=== PATIENT | female | born 1950 | race Caucasian/White ===

== ENCOUNTER 2016-10-03 07:45 | Day surgery (SDC) | payer BC ==
[~2016-10-03 07:45] MED LIST: Lactated Ringers 1,000 ML IV SCH
[2016-10-03] MEDS ORDERED: Simethicone Drops 40 MG/0.6 ML 30 ML Bottle ONE ×2 (09:48→10:17)
[2016-10-03 12:09] VITALS: BP 122/76
--- NOTE | 2016-10-03 16:29 | OR ---
DATE: 10/03/2016 PREOPERATIVE DIAGNOSIS: History of some abdominal pain and need for colonoscopy. POSTOPERATIVE DIAGNOSES: 1. Questionable submucosal mass at 70 cm. 2. Two polyps, one at 20 cm, and one at 10 cm. PROCEDURE: 1. Colonoscopy with tattooing of area at 70 cm. 2. Cold polypectomy, two polyps each of them less than 1 cm. ANESTHESIA: IV sedation. ESTIMATED BLOOD LOSS: None. BRIEF HISTORY: Rea Trejo is a 65-year-old female, who had some abdominal pain about a month ago, interesting enough that this pain did improve. 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 I had the opportunity to discuss the risks and benefits. DESCRIPTION OF PROCEDURE: The patient was taken to the operating room. IV sedation was begun placed in the left-side down, time-out was performed. At this point on perianal exam, I could appreciate she had 1 little skin tag. Rectal exam, I could feel the top of the uterus, which had a little bit of firmness to it. I then began to advance the scope and I was quite able to negotiate fairly easily even throughout redundant transverse colon. I was able to clearly see the ileocecal valve and transilluminate the light in the right lower quadrant. As I was coming out, everything looked fine, there was no signs of diverticula in the ascending colon or the transverse, everything looked healthy and nice, but at 70 cm there was this area that appeared to be like almost a submucosal mass. At first, I thought it was just simply bowel pushing into the intraluminal space, but I watched this for a period of time and it did not completely go away. I took a biopsy forces to see if I could push on it and again I felt that there might be something there, so what I elected to do was I tattooed with 2 mL with the intent of coming back in 6 months to evaluate this area. I continued on and she did have several diverticula and this was at 70 cm. Now, at 20 cm, there was a polyp that I simply was able to remove in its entirety with the biopsy forceps in a cold technique, continuing on in the rectum at 10 cm, there was a small polyp again I removed this. She tolerated the procedure well and the plan will be to reassess the area at 70 cm again to see if this is anything, or see with second set of eye that this may be nothing. [facility] /[id number]
[2016-10-03] MEDS ORDERED: Propofol 1,000 MG/100 ML SDV IV ONE (17:05)
== END 2016-10-03 12:15 | disposition home or self-care (01) ==
LOC: DL.ENDO 07:45
PROVIDERS: ATTEND Surgery
DX: R10.9 Unspecified abdominal pain (principal); D12.8 Benign neoplasm of rectum; K63.5 Polyp of colon; K57.30 Diverticulosis of large intestine without perforation or abscess without bleeding; Z87.891 Personal history of nicotine dependence; Z98.890 Other specified postprocedural states
CPT/HCPCS: 45380; A9270; J2704; J7120; 45381